=== PATIENT | male | born 1980 | race Caucasian/White ===

== ENCOUNTER 2016-09-01 23:49 | Observation (INO) | payer MEDICARE, MEDICAID ==
[~2016-09-01] VITALS: Ht 177.8 cm; Wt 111.7 kg
--- NOTE | ~2016-09-01 | DS ---
PATIENT'S NAME: STEPHANIE HERNANDEZ [facility] AGE: 36 Y [address] ROOM: [place] [address] LOCATION: [facility] [place] ADMIT DATE: 09/02/2016 Discharge Summary DISCHARGE DATE: 09/03/2016 FAMILY PHYSICIAN: Gelacio Madrid MD ATTENDING PHYSICIAN: Gonzalo Phillip FINAL DIAGNOSES: 1. Acute psychosis secondary to schizophrenia. 2. Diabetes mellitus. HISTORY OF PRESENT ILLNESS: Please see the history and physical dictated by Dr. Gonzalo Phillip. The patient presented to the emergency room with suicidal and homicidal ideations with auditory and visual hallucinations. It was felt that he would need to be seen by Psychiatry and eventually transferred to [facility]. The patient was admitted to [facility]. LABORATORY DATA: Sodium on admission 140, potassium 4.8, chloride 109, CO2 of 25, BUN 12, creatinine 1.2. Alkaline phosphatase 95, AST 16, ALT 28. Alcohol was less than 0.01. Acetaminophen was less than 2. Salicylate 5.8. TSH 1.31. White blood cell count of 10.1, hemoglobin 14.6, hematocrit 42.8, platelet count 201. Urinalysis did not show any evidence of infection. Urine drug screen was negative. HOSPITAL COURSE: The patient was admitted to [facility]. He was started back on his medications. A nicotine patch was placed. He was given Ativan for anxiety and restlessness. He was able to be resumed on his home medications. Overall, patient did improve. [facility] did feel that he was an adequate candidate for admission to [facility]. He was transferred there on September 03. DISCHARGE MEDICATIONS: 1. Glucophage 500 mg daily. 2. Invega 234 mg IM every 30 days. 3. Risperdal 2 mg twice daily. 4. Nicotine patch 21 mg, change daily. PROGNOSIS: Overall prognosis at discharge is guarded. ARMEN KERR MD PATIENT'S NAME: STEPHANIE HERNANDEZ [facility] AGE: 36 Y [address] ROOM: [place] [address] LOCATION: [facility] ADMIT DATE: 09/02/2016 Discharge Summary DISCHARGE DATE: 09/03/2016 FAMILY PHYSICIAN: Gelacio Madrid MD ATTENDING PHYSICIAN: Gonzalo Phillip/maru /[id number] d: 09/04/16 0259 t: 09/07/16 1509, DISCHARGE SUMMARY
--- NOTE | ~2016-09-01 | ER ---
PATIENT'S NAME: STEPHANIE HERNANDEZ [facility] AGE: 36 Y [address] ROOM: [place] [address] [place] [facility] [place]MIT DATE: 09/02/2016 ER/Outpatient Report DISCHARGE DATE: FAMILY PHYSICIAN: MUKUL HICKS MD ATTENDING PHYSICIAN: Gonzalo Phillip Time of Arrival: Admission date and time documented on the medical record. Time of Evaluation: I saw the patient at 0005 hours. CHIEF COMPLAINT: Suicidal and homicidal ideation, depression, anxiety, auditory and visual hallucinations. HISTORY OF PRESENT ILLNESS: This patient is a 36-year-old male, who was brought here for medical clearance. The patient does need inpatient psychiatric help and treatment, but there is no beds at [facility]. He comes here for medical clearance and admission here to the hospital with anticipation of going to [facility] in a day or two. The patient does have anxiety, depression, and sadness. He has had some homicidal and suicidal ideation. He has had some auditory hallucinations. He has had some paranoia and was delusional. No recent cough, cold, flus, fever, chills, or sweats. No headache or eyes, ears, nose, throat, neck, or spine pain. No lightheadedness, dizziness, syncope, or near syncope. No fall or trauma. No chest pain or shortness of breath. No abdominal pain, nausea, vomiting, or diarrhea. No urinary frequency, urgency, or dysuria. No joint or muscle swelling, redness, or pain. No skin eruptions or rash. No history of neuro changes or endocrine problems. HOME MEDICATIONS: See attached medication list. ALLERGIES: NONE. SOCIAL HISTORY: The patient smokes a pack to two packs of cigarettes a day. Occasional intake of alcohol. Denies any illicit drug use. SIGNIFICANT PAST MEDICAL HISTORY: Anxiety, depression, suicidal and homicidal ideation, visual and auditory hallucinations, paranoia, delusions, and grandiose thinking. OPERATIONS: None. PATIENT'S NAME: STEPHANIE HERNANDEZ [facility] AGE: 36 Y [address] ROOM: [place] [address] [place] [facility] [place] DATE: 09/02/2016 ER/Outpatient Report DISCHARGE DATE: FAMILY PHYSICIAN: MUKUL HICKS MD ATTENDING PHYSICIAN: Gonzalo Phillip REVIEW OF SYSTEMS: All systems reviewed by me are negative with the exception of those discussed in the history of present illness. PHYSICAL EXAMINATION: VITAL SIGNS: Temperature 96.6, tympanic; pulse 105; respirations 20; blood pressure 142/81; and O2 saturation on room air is 95%. Chadwick Coma Scale was 15. HEAD: Normocephalic. No abrasion, contusion, laceration, or swelling of the scalp or face. EYES: Extraocular muscles intact. PERRL. Sclerae and conjunctivae clear, nonicteric. EARS, NOSE, AND THROAT: Clear. Mucous membranes moist. Teeth, jaw intact. NECK: No nuchal rigidity. No thyromegaly or cervical adenopathy. No tenderness. SPINE: Negative. LUNGS: Clear. Good air flow. No rales, rhonchi, or wheezes. HEART: Regular. Pulses are palpable. No chest wall or ribcage pain to palpation. No deformity. ABDOMEN: Soft, nondistended, nontender. Good bowel tones. No organomegaly or abnormal mass palpable. EXTREMITIES: No peripheral edema, cyanosis, or deformity. NEUROVASCULAR: Intact. SKIN: Clear. No skin eruptions or rash. PSYCH: The patient is anxious. Depressed mood. No visual or auditory hallucinations at the present time. Has had some homicidal and suicidal thoughts. LABORATORY DATA: Urine drug screen was negative. Urinalysis showed 0 to 2 whites, negative reds, 0 to 2 epithelial cells, negative bacteria, 1+ mucus per high-powered field, nitrites negative. White count 21,800, 80 segs, 14 lymphs, 5 monos; hemoglobin is 15.3 with hematocrit 45.3; platelet count is 214,000. CMS was normal except for a slightly elevated glucose of 112. Medical blood alcohol is less than 0.01. Acetaminophen and salicylate serum levels were normal. TSH was 1.31. IMPRESSION: 1. Anxiety and depression with auditory hallucinations, suicidal and homicidal thoughts. 2. Medical clearance. PLAN: Did discuss the patient with Dr. Phillip who will admit the patient to PATIENT'S NAME: STEPHANIE HERNANDEZ [facility] AGE: 36 Y [address] ROOM: [place] [address] [place] [facility] [place]MIT DATE: 09/02/2016 ER/Outpatient Report DISCHARGE DATE: FAMILY PHYSICIAN: MUKUL HICKS MD ATTENDING PHYSICIAN: Gonzalo Phillip [facility]. The patient will need inpatient psychiatric treatment. MD YAMIL PRINCE/modl /[id number] d: 09/02/16 0525 t: 09/02/16 1708, OUTPATIENT REPORT
--- NOTE | ~2016-09-01 | HP ---
PATIENT'S NAME: STEPHANIE HERNANDEZ [facility] AGE: 36 Y [address] ROOM: [place] [address] [place] [facility] [place] DATE: 09/02/2016 History & Physical DISCHARGE DATE: FAMILY PHYSICIAN: MUKUL HICKS MD ATTENDING PHYSICIAN: Tejas Stauffer DATE OF SERVICE: CHIEF COMPLAINT: Suicidal and homicidal ideations. HISTORY OF PRESENTING ILLNESS: This is a 36-year-old white male with previous history of paranoid-type schizophrenia, was sent to [facility] this evening after trying to get himself admitted to [facility]. He has been experiencing an increase in auditory and visual hallucinations as of late. He has also been experiencing some feelings of suicidality and homicidality. He does not have a specific plan and there apparently was no specific attempt to harm himself today. On arrival in the emergency room, he was experiencing quite a bit of restlessness and anxiety. He received some Ativan and has since improved. He was subsequently transferred to the floor where he reports feeling "good." He denies any recent illnesses. He denies fevers, chills, or sweats. He denies headaches. Denies dizziness or nausea. No chest pain and no abdominal pain. He has been eating regularly and last ate around 8 o'clock this evening. He has been stooling and voiding normally. Denies numbness or tingling in his extremities or any other associated physical or constitutional complaints. PAST MEDICAL HISTORY: ALLERGIES: HALDOL. ILLNESSES: 1. Paranoid-type schizophrenia. 2. Diabetes mellitus type 2. CURRENT MEDICATIONS: 1. Risperidone, dose unknown. 2. Metformin, dose unknown. 3. Invega, dose unknown. PATIENT'S NAME: STEPHANIE HERNANDEZ [facility] AGE: 36 Y [address] ROOM: [place] [address] LOC[place]: [facility] [place] ADMIT DATE: 09/02/2016 History & Physical DISCHARGE DATE: FAMILY PHYSICIAN: MUKUL HICKS MD ATTENDING PHYSICIAN: Tejas Stauffer FAMILY HISTORY: Negative for heart attack or stroke. SOCIAL HISTORY: He is unmarried and lives here in [place]. Smokes half a pack to a pack of cigarettes per day. He denies any alcohol use and no illicit drug use. REVIEW OF SYSTEMS: As per HPI. All other organ systems are reviewed and are negative. OBJECTIVE: VITAL SIGNS: Temperature 96.6, pulse 105, respirations 20, blood pressure 142/81, O2 saturation 95% on room air. GENERAL: He is pleasant, cooperative, demonstrates a flattened affect. He is in no acute distress. SKIN: Supple. Hod[place], warm, and dry. There are no obvious rashes. He has tattoos about the upper extremities without any complicating features. HEENT: Otherwise, normocephalic. Sclerae nonicteric. Pupils equal, round, and reactive to light and accommodation. Extraocular movements appear intact. Nasal turbinates normal in appearance. Oropharynx clear. Mucous membranes are pink and moist. Teeth are in poor repair. NECK: Supple. No masses or adenopathy. No thyromegaly. No JVD. CHEST: Chest wall is symmetrical. HEART: Regular. No crackles or wheezes heard. ABDOMEN: Soft, obese, nontender. Bowel sounds present. No masses or hepatosplenomegaly. : Not done. RECTAL: Not done. EXTREMITIES: Display no clubbing, cyanosis, or edema. NEUROLOGIC: Mentation is slowed. He is oriented x2 only. There are no focal deficits. LABORATORY AND X-RAY DATA: CBC showed a white blood cell count elevated at 21.8, hemoglobin is 15.3, hematocrit 45.3, platelets 214. Chemistries revealed a BUN and creatinine of 12 and 1.2 respectively, sodium and potassium of 140 and 4.8, chloride and CO2 are 109 and 25, calcium is 8.8. AST and ALT of 16 and 28 respectively. Bilirubin is 0.2. Glucose 112. Urinalysis significant for 0 to 2 wbc's, no rbc's. Urine drug screen was negative. Serum ethanol, acetaminophen, and salicylate levels were unremarkable. TSH was 1.31. ASSESSMENT AND PLAN: 1. Acute psychosis with auditory and visual hallucinations as well as suicidality and homicidality. We will admit for observation. He appears to be medically stable. We will provide close clinical monitoring and PATIENT'S NAME: STEPHANIE HERNANDEZ [facility] AGE: 36 Y [address] ROOM: [address] [address] [place]: [facility] [place]MIT DATE: 09/02/2016 History & Physical DISCHARGE DATE: FAMILY PHYSICIAN: MUKUL HICKS MD ATTENDING PHYSICIAN: Tejas Stauffer one-to-one observation. We will manage symptoms of anxiety and restlessness with benzodiazepine therapy in addition to his usual regimen of antipsychotic medication. We will plan for Psychiatry evaluation at [facility] as soon as it is feasible. 2. Leukocytosis, nonspecific. There is no clinical evidence for infection. We will plan to repeat a CBC in the morning. 3. Diabetes mellitus type 2. We will perform Accu-Cheks regularly here but hold off on sliding scale insulin. Plan to continue metformin. 4. Paranoid-type schizophrenia. As above, we will plan to resume his home regimen of antipsychotic therapy. Plan close clinical followup with Psychiatry. 5. Morbid obesity. We will need to work on some long-term strategies for weight loss including calorie reduction, increased exercise, etc. 6. Deep venous thrombosis prophylaxis. He is relatively low risk. We will mobilize him as he is physically able. TEJAS STAUFFER MD AJS/modl /[id number] D: [id number] T: 018 HISTORY & PHYSICAL
[~2016-09-01 23:49] MED LIST: INVEGA SUS234 MG/1.5 IM; NICODERM/HABITR21 MG TRANS; RISPERDAL2 MG PO
[2016-09-02 00:33] LABS: BASOPHIL # 0.1 K/uL (0.0-0.2); BASOPHIL % 0.3 %; EOSINOPHIL # 0.1 K/uL (0.0-0.5); EOSINOPHIL % 0.3 %; HEMATOCRIT 45.3 % (37.0-53.0); HEMOGLOBIN 15.3 g/dL (12.0-17.0); IMMATURE GRANULOCYTE # 0.3 K/uL (0.0-0.3); IMMATURE GRANULOCYTE % 1.3 %; LYMPHOCYTE % 13.7 %; MCH 29.6 pg (27.0-34.0); MCHC 33.8 gm/dL (32.0-36.5); MCV 87.6 fl (83.0-98.0); MONOCYTE % 4.7 %; MPV 11.5 fl (9.4-12.4); NEUTROPHIL # (ANC) 17.4 K/uL (1.4-9.0); NEUTROPHIL % 79.7 %; NRBC % 0 /100WBC (0-0.00); PLATELET COUNT 214 K/uL (150-450); RBC 5.17 M/uL (4.00-6.00); RDW-CV 13.2 % (11.9-14.6); WBC 21.8 K/uL (4.0-11.0)
[2016-09-02 00:42] LABS: BILIRUBIN URINE NEGATIVE (NEGATIVE); BLOOD URINE 10 /UL (NEGATIVE); COLOR URINE YELLOW (YELLOW); GLUCOSE URINE NEGATIVE (NEGATIVE); KETONE URINE 5 mg/dL (NEGATIVE); LEUKOCYTES URINE 25 /UL (NEGATIVE); NITRITE URINE NEGATIVE (NEGATIVE); PROTEIN URINE NEGATIVE (NEGATIVE); TURBIDITY URINE CLEAR (CLEAR); UROBILINOGEN URINE NORMAL (NORMAL)
[2016-09-02 00:50] LABS: BACTERIA URINE NEGATIVE (NEGATIVE); EPITHELIAL URINE 0-2 #/HPF (NEGATIVE); MUCUS URINE 1+ (NEGATIVE); RBC URINE NEGATIVE #/HPF (NEGATIVE); WBC URINE 0-2 #/HPF (NEGATIVE)
[2016-09-02 00:53] LABS: ALBUMIN 3.9 gm/dL (3.5-5.0); ALK PHOS 95 IU/L (33-138); ALT 28 IU/L (12-78); ANION GAP 10.8 (10.0-19.0); AST 16 IU/L (10-40); BLOOD UREA NITROGEN 12 mg/dL (6-24); CALCIUM 8.8 mg/dL (8.5-10.5); CHLORIDE 109 mMol/L (96-110); CO2 25 mMol/L (22-32); CREATININE 1.2 mg/dL (0.6-1.3); ESTIMATED GFR (MDRD EQUATION) > 60; POTASSIUM 4.8 mMol/L (3.7-5.1); SODIUM 140 mMol/L (135-145); TOTAL BILIRUBIN 0.2 mg/dL (0.0-1.5); TOTAL PROTEIN 7.6 g/dL (6.0-8.4)
[2016-09-02 01:02] LABS: BARBITURATE NEGATIVE (NEGATIVE); COCAINE NEGATIVE (NEGATIVE)
[2016-09-02 01:05] LABS: AMPHETAMINE NEGATIVE (NEGATIVE); OPIATES NEGATIVE (NEGATIVE)
[2016-09-02] MEDS ORDERED: GLUCOPHAGE500 MG PO (03:15)
[2016-09-02 04:16] LABS: BASOPHIL # 0.1 K/uL (0.0-0.2); BASOPHIL % 0.4 %; EOSINOPHIL # 0.1 K/uL (0.0-0.5); EOSINOPHIL % 0.5 %; HEMATOCRIT 41.1 % (37.0-53.0); HEMOGLOBIN 14.1 g/dL (12.0-17.0); IMMATURE GRANULOCYTE # 0.2 K/uL (0.0-0.3); IMMATURE GRANULOCYTE % 1.1 %; LYMPHOCYTE # 4.2 K/uL (0.8-4.0); LYMPHOCYTE % 21.1 %; MCH 29.7 pg (27.0-34.0); MCHC 34.3 gm/dL (32.0-36.5); MCV 86.7 fl (83.0-98.0); MONOCYTE # 0.9 K/uL (0.0-1.0); MONOCYTE % 4.8 %; NEUTROPHIL # (ANC) 14.3 K/uL (1.4-9.0); NEUTROPHIL % 72.1 %; NRBC % 0 /100WBC (0-0.00); PLATELET COUNT 206 K/uL (150-450); RBC 4.74 M/uL (4.00-6.00); RDW-CV 13.2 % (11.9-14.6)
[2016-09-02 04:19] LABS: WBC 19.8 K/uL (4.0-11.0)
--- NOTE | 2016-09-02 05:31 | NUR ---
Pt admitted from ER around 0230 for suicidal and homicidal ideations. Tried to check himself into [facility], but they were full and sent him to our ER. Pt stated he started hearing voices a few days ago telling him to do things and wanting him to "answer questions." Pt states the voices got worse today. No visual hallucinations. A belongings bag was sent to security from ER that included a pocket knife. Does have a belongings bag in room with the clothes he had on. Pt has a pysch history which includes depression, suicidal thoughts, schizophrenia. Other health history includes possible diabetic.
--- NOTE | 2016-09-02 06:57 | NUR ---
Significant Event: Pt alert and oriented. Cooperative with cares. Up with stand by assist. 1:1 observation. Pt denies any suicidal/homicidal ideations or any auditory hallucinations. IV saline locked. Belongings in closest and some are with security. May have electronic devices. No visitors. Accuchecks BID. VSS. Follow up:
--- NOTE | 2016-09-02 09:51 | NUR ---
5236 Phone call to Kendall at [facility] to inquire about available beds. Per Kendall they may have one discharge today and if that happens this patient would have priority for this available bed. He will call me after their morning meetings which he said will be between [phone]. I notified charge nurse Griselda.
--- NOTE | 2016-09-02 16:05 | NUR ---
Took over care of patient at 1130. He is alert and oriented, VSS, on room air. Ad barrett in room. Has slept majority of the day. Is not having any hallucinations or dellusions. No complaints of pain. Will possibly go to [facility] tomorrow.
[2016-09-03 04:19] LABS: BASOPHIL # 0.1 K/uL (0.0-0.2); BASOPHIL % 0.6 %; EOSINOPHIL # 0.2 K/uL (0.0-0.5); EOSINOPHIL % 1.6 %; HEMATOCRIT 42.8 % (37.0-53.0); HEMOGLOBIN 14.6 g/dL (12.0-17.0); IMMATURE GRANULOCYTE # 0.2 K/uL (0.0-0.3); IMMATURE GRANULOCYTE % 1.9 %; LYMPHOCYTE # 4.4 K/uL (0.8-4.0); LYMPHOCYTE % 43.4 %; MCH 30.1 pg (27.0-34.0); MCHC 34.1 gm/dL (32.0-36.5); MCV 88.2 fl (83.0-98.0); MONOCYTE # 0.7 K/uL (0.0-1.0); MONOCYTE % 6.7 %; NEUTROPHIL # (ANC) 4.6 K/uL (1.4-9.0); NEUTROPHIL % 45.8 %; NRBC % 0 /100WBC (0-0.00); PLATELET COUNT 201 K/uL (150-450); RBC 4.85 M/uL (4.00-6.00); RDW-CV 13.2 % (11.9-14.6); WBC 10.1 K/uL (4.0-11.0)
--- NOTE | 2016-09-03 04:54 | NUR ---
Significant Event: ALERT AND ORIENTATED X3 UP WITH STAND BY ASSIST. STATES NO SUICIDAL IDEATION THIS SHIFT. NO HALLUATIONS OR DELLUSIONS. RESTED GOOD THIS SHIFT. VSS ACCUCHECK BID. Follow up:
--- NOTE | 2016-09-03 10:28 | NUR ---
Spoke to JEANNINE Bejarano at 0815 to see if patient will be medically cleared to go to [facility] today and she states yes. Phone call to Sangeetha at the [facility] Access Center and informed her of patient. Sangeetha checked with her staff and called me back at 0930 and asked for the nurse to nurse (2020) call to be completed. Gave this information to patient's nurse Montse and she called [facility] at [phone]. Phone call from Sangeetha at [phone] and informed that they have accepted patient. Spoke to patient and he states he does not have any family to transport him to [facility]. He is willing to go there voluntarily. Ambulance Cert form on the chart for transfer to [facility]. Contacted Yuridia at EMS and informed her of the non-emergent transport. Will call her once patient is ready for discharge.
--- NOTE | 2016-09-03 11:55 | NUR ---
PT. ALERT AND ORIENTED. DENIES PAIN. UP AD BREN TO BR AND SHOWER. DENIES HALLUCINATIONS OR DELLUSIONS. VITAL SIGNS STABLE ON ROOM AIR. DENIES SUICIDE IDEATIONS THIS SHIFT. ON 1:1 SUPERVISION HERE. IV D/C'D PER TRANSFER. ACCUCHECKS BID.
--- NOTE | 2016-09-03 12:02 | NUR ---
PT. IV D/C'D PER TRANSFER. DENIES PAIN. STATES HAD 2 BM'S TODAY. UP AD BREN IN ROOM. VSS. TRANSFERRED PER AMBULANCE TO [facility].
--- NOTE | 2016-09-03 13:53 | NUR ---
Notified EMS at 1200 that patient is ready for discharge to [facility]. Ambulance was just sent out on a 911 call so Yuridia said she will just call the floor when the crew is back and ready to pick patient up. Informed charge nurse Rula.
[2016-09-03] MEDS ORDERED: NICOTINE PATCH1 EAC4 TRANS (14:25)
[2016-09-05] MEDS ORDERED: VISTARIL50 MG PO (09:34)
== END 2016-09-03 13:00 ==
LOC: GMED 23:49 → GMSU 09-02 01:30
PROVIDERS: Emergency Medicine; Internal Medicine; ADMIT Family Medicine
DX: F23 Brief psychotic disorder (principal); E11.9 Type 2 diabetes mellitus without complications; R45.850 Homicidal ideations; R45.851 Suicidal ideations; R44.0 Auditory hallucinations; R44.1 Visual hallucinations; F20.0 Paranoid schizophrenia; F17.210 Nicotine dependence, cigarettes, uncomplicated; D72.829 Elevated white blood cell count, unspecified; E66.01 Morbid (severe) obesity due to excess calories; F32.9 Major depressive disorder, single episode, unspecified; F41.9 Anxiety disorder, unspecified; Z88.8 Allergy status to other drugs, medicaments and biological substances
CPT/HCPCS: G0378; G0480

== ENCOUNTER → 2016-09-03 | Outpatient (CLI) | payer MEDICARE, MEDICAID ==
[~2016-09-03] MED LIST changes: +GLUCOPHAGE500 MG PO; +NICOTINE PATCH1 EAC4 TRANS; +VISTARIL50 MG PO
== END | disposition disaster alternative care site (69) ==
LOC: GAMB 13:00
DX: R45.851 Suicidal ideations (principal); E11.9 Type 2 diabetes mellitus without complications; F60.1 Schizoid personality disorder; R45.850 Homicidal ideations; Z79.84 Long term (current) use of oral hypoglycemic drugs; Z79.899 Other long term (current) drug therapy; Z88.8 Allergy status to other drugs, medicaments and biological substances
CPT/HCPCS: A0425; A0428

== ENCOUNTER 2016-10-18 18:18 | Emergency (ER) | payer MEDICARE, MEDICAID ==
--- NOTE | ~2016-10-18 | ER ---
PATIENT'S NAME: STEPHANIE HERNANDEZ [facility] AGE: 36 Y [address] ROOM: [place], [place] [address] LOCATION: [facility] ADMIT DATE: 10/18/2016 ER/Outpatient Report DISCHARGE DATE: 10/18/2016 FAMILY PHYSICIAN: PHYSICIAN, NO ATTENDING PHYSICIAN: Geo Bermeo Time of Arrival: 1818 hours. Time of Evaluation: 1840 hours. CHIEF COMPLAINT: This is a 36-year-old male. He is previously healthy. He is in with complaint of a headache, dizziness, anxiety, and fleeting thoughts of suicide. He did state that while he was driving earlier today, he briefly considered turning into oncoming traffic. PAST MEDICAL HISTORY: Significant for bipolar disorder. He also states he has had psychotic disorder in the past. MEDICATIONS: Current medications include, see list. REVIEW OF SYSTEMS: He states he has been feeling a little more stress than usual lately. All other systems are negative. SOCIAL HISTORY: He is a 2-pack per day smoker. PHYSICAL EXAMINATION: GENERAL: An alert and cooperative male, in no acute distress. VITAL SIGNS: Stable. SKIN: Warm and dry. Color is normal. HEAD, EARS, EYES, NOSE, AND THROAT: Normal. NECK: Supple. HEART: Regular rate and rhythm without murmur. LUNGS: Clear. Breath sounds are equal. ABDOMEN: Soft. EXTREMITIES: No gross deformities. He has cigarette gupta on his left hand. NEUROLOGIC EXAM: He has no focal deficits. He is alert. He is oriented. MENTAL STATUS EXAMINATION: He is awake, alert, and oriented x3. He had good short and long-term memory. He had good insight into his illness. He initially stated he is suicidal; however, he later denied this. PATIENT'S NAME: STEPHANIE HERNANDEZ [facility] AGE: 36 Y [address] ROOM: [place], [place] [address] LOCATION: [facility] ADMIT DATE: 10/18/2016 ER/Outpatient Report DISCHARGE DATE: 10/18/2016 FAMILY PHYSICIAN: PHYSICIAN, NO ATTENDING PHYSICIAN: Geo Bermeo EMERGENCY DEPARTMENT COURSE: The intake counselor [facility] was called, evaluated the patient, developed a safety plan, and reassessed the patient. He is comfortable with a safety plan. He no longer felt suicidal. He felt like he would be able to get his symptoms under control and he was discharged. ASSESSMENT: Acute anxiety. PLAN: As outlined above. MD VENANCIO AMARO/modl /[id number] d: 10/19/16 1104 t: 10/22/16 0550, OUTPATIENT REPORT
[2016-10-18 19:35] LABS: BASOPHIL # 0.1 K/uL (0.0-0.2); BASOPHIL % 0.4 %; EOSINOPHIL # 0.2 K/uL (0.0-0.5); EOSINOPHIL % 1.2 %; HEMOGLOBIN 14.2 g/dL (12.0-17.0); IMMATURE GRANULOCYTE # 0.1 K/uL (0.0-0.3); IMMATURE GRANULOCYTE % 0.6 %; LYMPHOCYTE # 3.8 K/uL (0.8-4.0); LYMPHOCYTE % 24.3 %; MCH 30.3 pg (27.0-34.0); MCHC 34.6 gm/dL (32.0-36.5); MCV 87.4 fl (83.0-98.0); MONOCYTE # 0.8 K/uL (0.0-1.0); MPV 11.7 fl (9.4-12.4); NEUTROPHIL # (ANC) 10.6 K/uL (1.4-9.0); NEUTROPHIL % 68.5 %; NRBC % 0 /100WBC (0-0.00); RBC 4.69 M/uL (4.00-6.00); RDW-CV 13.1 % (11.9-14.6); WBC 15.4 K/uL (4.0-11.0)
[2016-10-18 19:36] LABS: PLATELET COUNT 244 K/uL (150-450)
[2016-10-18 19:56] LABS: ALBUMIN 3.4 gm/dL (3.5-5.0); ALK PHOS 88 IU/L (33-138); ALT 38 IU/L (12-78); ANION GAP 11.2 (10.0-19.0); AST 17 IU/L (10-40); BLOOD UREA NITROGEN 9 mg/dL (6-24); CALCIUM 8.3 mg/dL (8.5-10.5); CHLORIDE 110 mMol/L (96-110); CO2 25 mMol/L (22-32); CREATININE 1.2 mg/dL (0.6-1.3); POTASSIUM 4.2 mMol/L (3.7-5.1); SODIUM 142 mMol/L (135-145); TOTAL BILIRUBIN 0.3 mg/dL (0.0-1.5); TOTAL PROTEIN 6.8 g/dL (6.0-8.4)
== END 2016-10-18 21:35 | disposition disaster alternative care site (69) ==
LOC: GMED 18:18
PROVIDERS: Emergency Medicine
DX: F41.9 Anxiety disorder, unspecified (principal); F31.9 Bipolar disorder, unspecified; F17.210 Nicotine dependence, cigarettes, uncomplicated; Z88.8 Allergy status to other drugs, medicaments and biological substances; Z79.84 Long term (current) use of oral hypoglycemic drugs; Z79.899 Other long term (current) drug therapy
CPT/HCPCS: G0480

== ENCOUNTER 2016-10-25 23:17 | Emergency (ER) | payer MEDICARE, MEDICAID ==
--- NOTE | ~2016-10-25 | ER ---
PATIENT'S NAME: STEPHANIE HERNANDEZ [facility] AGE: 36 Y [address] ROOM: [place] [address] LOCATION: [facility] ADMIT DATE: 10/25/2016 ER/Outpatient Report DISCHARGE DATE: FAMILY PHYSICIAN: Gelacio Madrid MD ATTENDING PHYSICIAN: Pam Tate HISTORY OF PRESENT ILLNESS: This is a 36-year-old male who presents today with chief complaint of rapid heartbeat. He says this started when he was watching TV, at approximately 6 hours ago, he went to a Narcotics Anonymous meeting after that, says that he was unable to speak during their group sessions; so, he went back home and then he thought it felt worse; so, he decided to come in. He denies any chest pain. He says he has a mild headache and feels mildly nauseous as well, but otherwise has no chest pain, no abdominal pain, no back pain, no shortness of breath, and no other complaints at this time. He says he was here for something similar a few days ago. I reviewed the chart and it showed that the patient had come in for fleeting thoughts of suicidal ideation and this palpitations and feeling not right and he had a lab work done and a workup that was unremarkable. The patient reports that he is compliant with all of his medications and he has an appointment with his doctor at [facility]. PAST MEDICAL HISTORY: Includes prediabetes, history of psychotic episodes, and bipolar disorder. PAST SURGICAL HISTORY: Left knee x2. SOCIAL HISTORY: He smokes 2 packs per day x16 years. Drinks occasionally. Denies any drug use though. MEDICATIONS: Med list includes: 1. Risperdal. 2. Invega. 3. Metformin. ALLERGIES: HALDOL AND GEODON. REVIEW OF SYSTEMS: Reviewed by me and negative with the exception of those discussed in the HPI. PHYSICAL EXAMINATION: PATIENT'S NAME: STEPHANIE HERNANDEZ [facility] AGE: 36 Y [address] ROOM: [place] [address] LOCATION: [facility] ADMIT DATE: 10/25/2016 ER/Outpatient Report DISCHARGE DATE: FAMILY PHYSICIAN: Gelacio Madrid MD ATTENDING PHYSICIAN: Pam Tate GENERAL: The patient is 6 feet tall, he weighs 113.6 kilos, blood pressure 136/79, heart rate 98, respiratory rate 18, temp is 97, and sats are 96% on room air. GENERAL: The patient appears mildly anxious; although, well-appearing, nontoxic. He is speaking full sentences. He is awake and alert. He is A and O x4. GCS is 15. HEART: Heart rate is regular rate and rhythm. His heart rate is about 90 beats per minute at this time. Blood pressure mildly elevated at 136/79. LUNGS: His lung sounds sound clear. He does not have any respiratory distress. No increased work of breathing. No wheezing or rhonchi. ABDOMEN: Soft, nontender, nondistended. He has no guarding or rebound. EXTREMITIES: He moves all extremities without difficulty. NEURO: Pupils are equal and reactive to light. He does not have any proptosis. Cranial nerves 2 through 12 are intact. No pronator drift. Strength bilateral upper and lower extremities is 5/5. EMERGENCY ROOM COURSE: An EKG was done, which on my read was sinus rhythm without any ectopy. No ST- elevations or ST-depressions. I gave the patient 1 mg of Ativan and 4 mg of p.o. Zofran and then we reassessed him. About [id number] after that, he said he felt a lot better, no longer feels palpitations, he is not nauseous anymore. I did discuss with him about like stress or whatever else is going on and in fact he says he is mildly stressed, he has some anxiety as well, he has taken Xanax in the past, but nothing since then. He will follow up with his [facility]. He understands reasons to come back to the ER sooner. IMPRESSION: Anxiety. MD BARBER VELASQUEZ/maru /[id number] d: 10/26/160 t: 10/26/16 0407, OUTPATIENT REPORT
== END 2016-10-26 00:11 | disposition disaster alternative care site (69) ==
LOC: GMED 23:17
DX: F41.9 Anxiety disorder, unspecified (principal); F17.210 Nicotine dependence, cigarettes, uncomplicated; F31.9 Bipolar disorder, unspecified; R73.03 Prediabetes; Z79.899 Other long term (current) drug therapy; Z79.84 Long term (current) use of oral hypoglycemic drugs; Z98.890 Other specified postprocedural states; Z88.8 Allergy status to other drugs, medicaments and biological substances